=== PATIENT | male | born 1995 | race Caucasian/White ===

== ENCOUNTER 2019-01-05 10:37 | Emergency (ER) | payer MEDICAID ==
[~2019-01-05] VITALS: Ht 165.1 cm; Wt 75.0 kg
[2019-01-05] MEDS ORDERED: ONDANSETRON HCL 4MG/2ML INJ IV ONE (11:00)
[2019-01-05] MEDS ORDERED: SODIUM CHLORIDE 0.9% 1,000 ML IV ONE (11:11)
[2019-01-05] MEDS ORDERED: LEVETIRACETAM 1000MG/100ML 100 ML IV ONE (11:15)
[2019-01-05 11:20] LABS: BASOPHILS % 0.7 % (0.0-2.0); EOSINOPHILS % 1.1 % (0.0-5.0); HEMATOCRIT. 43.4 % (42.0-52.0); HEMOGLOBIN. 15.1 g/dL (14.0-18.0); LYMPHOCYTES % 31.4 % (20.0-50.0); MEAN CORPUSCULAR HEMOGLOBIN 31.6 pg (28.0-32.0); MEAN CORPUSCULAR VOLUME 91.2 fL (80.0-94.0); MEAN PLATELET VOLUME 8.4 fl (7.4-10.4); MONOCYTES % 6.4 % (2.0-8.0); NEUTROPHILS % 60.4 % (40.0-76.0); PLATELET 270 x1000/uL (130-400); RED BLOOD CELL COUNT 4.76 mill/uL (4.7-6.1); RED CELL DISTRIBUTION WIDTH 12.2 % (11.6-14.6)
[2019-01-05 11:22] LABS: CLARITY URINE CLEAR (CLEAR); COLOR URINE YELLOW (YELLOW); KETONES URINE TRACE (NEGATIVE); LEUKOCYTE ESTERASE URINE NEGATIVE (NEGATIVE); NITRITE URINE NEGATIVE (NEGATIVE); OCCULT BLOOD URINE NEGATIVE (NEGATIVE); PROTEIN URINE NEGATIVE (NEGATIVE); SPECIFIC GRAVITY URINE 1.023 (1.005-1.030); UROBILINOGEN URINE 0.2 E.U./dL (0.2-1.0)
[2019-01-05 11:27] LABS: CHLORIDE 107 mEq/L (98-107)
[2019-01-05 11:30] LABS: INR 1.1; PARTIAL THROMBOPLASTIN TIME 24.4 sec (23.4-31.0); PROTHROMBIN TIME 10.7 sec (9.1-11.1)
[2019-01-05 11:32] LABS: ETHANOL BLOOD < 10 mg/dL
[2019-01-05 11:52] LABS: *AMPHETAMINES SCREEN URINE NEGATIVE (NEGATIVE)
[2019-01-05 11:54] LABS: *BENZODIAZEPINES SCREEN URINE NEGATIVE (NEGATIVE); *COCAINE SCREEN URINE NEGATIVE (NEGATIVE); CANNABINOID URINE SCREEN NEGATIVE (NEGATIVE); METHADONE URINE SCREEN NEGATIVE (NEGATIVE); PHENCYCLIDINE URINE SCREEN NEGATIVE (NEGATIVE)
[2019-01-05 11:57] LABS: *BARBITURATES SCREEN URINE NEGATIVE (NEGATIVE); OPIATES URINE SCREEN NEGATIVE (NEGATIVE)
[2019-01-05 15:00] VITALS: BP 98/46
== END 2019-01-05 15:24 | disposition home or self-care (01) ==
LOC: ER 10:37
DX: R56.9 Unspecified convulsions (principal); R11.2 Nausea with vomiting, unspecified
CPT/HCPCS: 36415; 70450; 80053; 80305; 80320; 81003; 85025; 85610; 85730; 96365; 96375; 99284; J1953; J2405; J7030; Z7610; G0480